=== PATIENT | male | born 1950 | race African-American/Black ===

== ENCOUNTER → 2016-11-04 | Outpatient (CLI) | payer OTHER ==
[2016-11-04 09:57] LABS: Basophils # (auto) 0 uL; Basophils % (auto) 0.5 % (0.0-2.0); Eosinophils # (auto) 0.3 uL; Hematocrit 45.7 % (41.0-53.0); Hemoglobin 15.6 g/dL (13.5-17.5); Lymphocytes # (auto) 2.7 uL; Lymphocytes % (auto) 49.5 % (10.0-50.0); Mean Corpuscular Hemoglobin 33.3 pg (28.0-32.0); Mean Corpuscular Volume 97.9 fL (80.0-100.0); Monocytes # (auto) 0.6 uL; Monocytes % (auto) 11.4 % (0.0-12.0); Neutrophils # (auto) 1.8 uL; Neutrophils % (auto) 32.6 % (37.0-80.0); Platelet Count (auto) 286 10^3/uL (140-450); Red Cell Distribution Width 12.9 % (11.6-16.0); White Blood Cell 5.5 10^3/uL (4.4-10.8)
[2016-11-04 10:24] LABS: Albumin 3.6 g/dL (3.4-5.0); BUN/Creatinine Ratio 11.3; Bilirubin, Total 0.8 mg/dL (0.2-1.0); Calcium 8.5 mg/dL (8.5-10.1); Potassium 3.9 mmol/L (3.5-5.1); Total Protein 7.8 g/dL (6.4-8.2)
== END | disposition home or self-care (01) ==
LOC: LAB 09:26
PROVIDERS: ATTEND Internal Medicine
DX: J30.2 Other seasonal allergic rhinitis (principal)
CPT/HCPCS: 36415; 80053; 80061; 83036; 84153; 84439; 84443; 85025; 85652; 86704; 86705; 86706; 86803; 87340

== ENCOUNTER → 2017-07-28 | Outpatient (CLI) | payer OTHER ==
[2017-07-28 16:29] LABS: Basophils # (auto) 0.1 uL; Basophils % (auto) 1.1 % (0.0-2.0); Eosinophils # (auto) 0.3 uL; Eosinophils % (auto) 4.9 % (0.0-7.0); Hematocrit 43.3 % (41.0-53.0); Hemoglobin 14.6 g/dL (13.5-17.5); Lymphocytes # (auto) 2.2 uL; Lymphocytes % (auto) 42.1 % (10.0-50.0); Mean Corpuscular Hemoglobin 33.5 pg (28.0-32.0); Mean Corpuscular Hgb Conc. 33.8 g/dL (32.0-36.0); Mean Corpuscular Volume 99.2 fL (80.0-100.0); Mean Platelet Volume 8.4 fL (6.9-10.8); Monocytes # (auto) 0.6 uL; Monocytes % (auto) 12.1 % (0.0-12.0); Neutrophils # (auto) 2.1 uL; Neutrophils % (auto) 39.8 % (37.0-80.0); Nucleated Red Blood Cells % 0.1 %; Platelet Count (auto) 195 10^3/uL (140-450); White Blood Cell 5.3 10^3/uL (4.4-10.8)
[2017-07-28 16:53] LABS: Albumin 3.7 g/dL (3.4-5.0); BUN/Creatinine Ratio 12.1; Calcium 8.7 mg/dL (8.5-10.1); Magnesium 2.6 mg/dL (1.6-2.6); Potassium 4.2 mmol/L (3.5-5.1)
[2017-07-28 17:01] LABS: Bilirubin, Total 0.4 mg/dL (0.2-1.0); Total Protein 7.7 g/dL (6.4-8.2)
== END | disposition home or self-care (01) ==
LOC: LAB 15:58
PROVIDERS: ATTEND Internal Medicine
DX: R25.2 Cramp and spasm (principal)
CPT/HCPCS: 36415; 80053; 83735; 84439; 84443; 85025

== ENCOUNTER → 2017-08-01 | Outpatient (CLI) | payer OTHER | END | disposition home or self-care (01) | LOC: XY 08:25 | PROVIDERS: ATTEND Internal Medicine | DX: I73.9 Peripheral vascular disease, unspecified (principal); M79.605 Pain in left leg; M79.604 Pain in right leg; R20.0 Anesthesia of skin | CPT/HCPCS: 93923; 93926 ==

== ENCOUNTER 2017-08-07 18:45 | Emergency (ER) | payer OTHER ==
[~2017-08-07] VITALS: Ht 172.7 cm; Wt 88.9 kg
[2017-08-07 19:41] VITALS: BP 137/76
[2017-08-07] MEDS ORDERED: IBUPROFEN 600 MG TAB PO ONE (23:30)
[2017-08-07] MEDS ORDERED: cefTRIAXone SOD 1,000 MG VL IM ONE ×2 (23:30→23:45)
== END 2017-08-08 00:15 | disposition home or self-care (01) ==
LOC: ER 18:45
DX: J40 Bronchitis, not specified as acute or chronic (principal)
CPT/HCPCS: 71020; 96372; 99284; J0696

== ENCOUNTER → 2017-11-03 | Outpatient (CLI) | payer OTHER ==
[2017-11-03 10:46] LABS: Basophils # (auto) 0 uL; Basophils % (auto) 0.9 % (0.0-2.0); Eosinophils # (auto) 0.2 uL; Eosinophils % (auto) 3.6 % (0.0-7.0); Hematocrit 45.1 % (41.0-53.0); Hemoglobin 15.1 g/dL (13.5-17.5); Lymphocytes # (auto) 2.6 uL; Lymphocytes % (auto) 49.9 % (10.0-50.0); Mean Corpuscular Hemoglobin 32.9 pg (28.0-32.0); Mean Corpuscular Hgb Conc. 33.5 g/dL (32.0-36.0); Mean Corpuscular Volume 98.2 fL (80.0-100.0); Monocytes # (auto) 0.8 uL; Monocytes % (auto) 14.4 % (0.0-12.0); Neutrophils # (auto) 1.6 uL; Neutrophils % (auto) 31.2 % (37.0-80.0); Nucleated Red Blood Cells % 0.1 %; Platelet Count (auto) 207 10^3/uL (140-450); Red Blood Cells 4.59 10^6/uL (4.5-5.90); Red Cell Distribution Width 13.1 % (11.8-14.3); White Blood Cell 5.3 10^3/uL (4.4-10.8)
[2017-11-03 10:49] LABS: Urine Bacteria NONE SEEN /hpf (None Seen); Urine Blood Negative /uL (Negative); Urine Specific Gravity 1.016 (1.001-1.035); Urine WBC 1 /hpf (0 - 3)
[2017-11-03 11:43] LABS: Albumin 3.4 g/dL (3.4-5.0); BUN/Creatinine Ratio 12.3; Calcium 8.5 mg/dL (8.5-10.1); Potassium 4.9 mmol/L (3.5-5.1); Total Protein 7.4 g/dL (6.4-8.2)
== END | disposition home or self-care (01) ==
LOC: LAB 10:32
PROVIDERS: ATTEND Internal Medicine
DX: N40.0 Benign prostatic hyperplasia without lower urinary tract symptoms (principal); E78.00 Pure hypercholesterolemia, unspecified
CPT/HCPCS: 36415; 80053; 80061; 81001; 84153; 85025

== ENCOUNTER → 2018-04-13 | Outpatient (CLI) | payer OTHER ==
[2018-04-13 10:26] LABS: Cholesterol 214 mg/dL (< 200); HDL Cholesterol 49 mg/dL (40-59); LDL Cholesterol 160 mg/dL (< 100); Triglycerides 68 mg/dL (< 150)
== END | disposition home or self-care (01) ==
LOC: LAB 09:40
PROVIDERS: ATTEND Internal Medicine
DX: E78.00 Pure hypercholesterolemia, unspecified (principal)
CPT/HCPCS: 36415; 80061; 84439; 84443; 86038; 86200; 86431

== ENCOUNTER → 2018-11-29 | Outpatient (CLI) | payer OTHER ==
[2018-11-29 15:31] LABS: Urine Bacteria NONE SEEN /hpf (None Seen); Urine Blood Negative /uL (Negative); Urine Specific Gravity 1.025 (1.001-1.035); Urine WBC 1 /hpf (0 - 3)
[2018-11-29 15:49] LABS: Basophils # (auto) 0 uL; Basophils % (auto) 0.2 % (0.0-2.0); Eosinophils # (auto) 0.2 uL; Eosinophils % (auto) 3.9 % (0.0-7.0); Hemoglobin 15.9 g/dL (13.5-17.5); Lymphocytes # (auto) 2.3 uL; Lymphocytes % (auto) 39.7 % (10.0-50.0); Mean Corpuscular Hemoglobin 32.8 pg (28.0-32.0); Mean Corpuscular Hgb Conc. 33.1 g/dL (32.0-36.0); Mean Corpuscular Volume 99.1 fL (80.0-100.0); Monocytes # (auto) 0.7 uL; Monocytes % (auto) 11.4 % (0.0-12.0); Neutrophils # (auto) 2.6 uL; Neutrophils % (auto) 44.8 % (37.0-80.0); Nucleated Red Blood Cells % 0.1 %; Platelet Count (auto) 203 10^3/uL (140-450); Red Blood Cells 4.84 10^6/uL (4.5-5.90); Red Cell Distribution Width 13.3 % (11.8-14.3); White Blood Cell 5.8 10^3/uL (4.4-10.8)
[2018-11-29 16:09] LABS: Albumin 3.6 g/dL (3.4-5.0); BUN/Creatinine Ratio 12.8; Bilirubin, Total 0.6 mg/dL (0.2-1.0); Calcium 8.6 mg/dL (8.5-10.1); Total Protein 7.4 g/dL (6.4-8.2)
[2018-11-29 16:14] LABS: Potassium 4.2 mmol/L (3.5-5.1)
== END | disposition home or self-care (01) ==
LOC: LAB 14:58
PROVIDERS: ATTEND Internal Medicine
DX: J30.9 Allergic rhinitis, unspecified (principal); E78.5 Hyperlipidemia, unspecified
CPT/HCPCS: 36415; 80053; 80061; 81001; 84439; 84443; 85025; 85652

== ENCOUNTER → 2019-04-08 | Outpatient (CLI) | payer OTHER ==
[2019-04-08 09:39] LABS: Basophils # (auto) 0 uL; Basophils % (auto) 0.6 % (0.0-2.0); Lymphocytes # (auto) 2.6 uL; Monocytes # (auto) 0.7 uL; Nucleated Red Blood Cells % 0.1 %
[2019-04-08 09:42] LABS: Eosinophils # (auto) 0.4 uL; Eosinophils % (auto) 6.4 % (0.0-7.0); Hematocrit 46.1 % (41.0-53.0); Hemoglobin 15.5 g/dL (13.5-17.5); Lymphocytes % (auto) 45.4 % (10.0-50.0); Mean Corpuscular Hemoglobin 33.4 pg (28.0-32.0); Mean Corpuscular Hgb Conc. 33.6 g/dL (32.0-36.0); Mean Corpuscular Volume 99.4 fL (80.0-100.0); Monocytes % (auto) 12.3 % (0.0-12.0); Neutrophils % (auto) 35.3 % (37.0-80.0); Platelet Count (auto) 214 10^3/uL (140-450); Red Blood Cells 4.64 10^6/uL (4.5-5.90); Red Cell Distribution Width 13.3 % (11.8-14.3); White Blood Cell 5.6 10^3/uL (4.4-10.8)
[2019-04-08 10:16] LABS: Albumin 3.2 g/dL (3.4-5.0); Calcium 8.2 mg/dL (8.5-10.1)
[2019-04-08 10:19] LABS: BUN/Creatinine Ratio 10.3; Bilirubin, Total 0.6 mg/dL (0.2-1.0); Total Protein 7.3 g/dL (6.4-8.2)
[2019-04-08 10:24] LABS: Free T4 (Free Thyroxine) 0.86 ng/dL (0.89-1.76); Prostate Specific Antigen 1.84 ng/mL (0.0-4.0)
== END | disposition home or self-care (01) ==
LOC: LAB 09:14
PROVIDERS: ATTEND Internal Medicine
DX: N40.0 Benign prostatic hyperplasia without lower urinary tract symptoms (principal); N52.9 Male erectile dysfunction, unspecified; R53.83 Other fatigue
CPT/HCPCS: 36415; 80053; 84153; 84403; 84439; 84443; 85025; 85379; 85652

== ENCOUNTER → 2020-01-20 | Outpatient (CLI) | payer OTHER ==
[2020-01-20 10:03] LABS: Basophils # (auto) 0.1 10 ^3/uL (0-0.2); Basophils % (auto) 0.8 % (0.0-2.0); Eosinophils # (auto) 0.4 10 ^3/uL (0-0.8); Eosinophils % (auto) 6.2 % (0.0-7.0); Hematocrit 45.4 % (41.0-53.0); Hemoglobin 15.2 g/dL (13.5-17.5); Lymphocytes # (auto) 2.6 10 ^3/uL (0.4-5.4); Lymphocytes % (auto) 38.2 % (10.0-50.0); Mean Corpuscular Hemoglobin 33.8 pg (28.0-32.0); Mean Corpuscular Hgb Conc. 33.6 g/dL (32.0-36.0); Mean Corpuscular Volume 100.7 fL (80.0-100.0); Monocytes # (auto) 0.7 10 ^3/uL (0-1.3); Monocytes % (auto) 10.8 % (0.0-12.0); Nucleated Red Blood Cells % 0.1 %; Platelet Count (auto) 201 10^3/uL (140-450); Red Cell Distribution Width 13.6 % (11.8-14.3); White Blood Cell 6.9 10^3/uL (4.4-10.8)
[2020-01-20 10:35] LABS: Albumin 3.3 g/dL (3.4-5.0); Calcium 8.3 mg/dL (8.5-10.1); Potassium 4.6 mmol/L (3.5-5.1)
[2020-01-20 10:39] LABS: Bilirubin, Total 0.8 mg/dL (0.2-1.0)
== END | disposition home or self-care (01) ==
LOC: LAB 09:41
PROVIDERS: ATTEND Internal Medicine
DX: I10 Essential (primary) hypertension (principal); E78.5 Hyperlipidemia, unspecified
CPT/HCPCS: 36415; 80053; 80061; 84443; 85025; 85652

== ENCOUNTER → 2020-05-18 | Outpatient (CLI) | payer OTHER ==
[2020-05-18 08:42] LABS: Basophils # (auto) 0 10 ^3/uL (0-0.2); Basophils % (auto) 0.5 % (0.0-2.0); Eosinophils # (auto) 0.2 10 ^3/uL (0-0.8); Eosinophils % (auto) 3.8 % (0.0-7.0); Hematocrit 45.5 % (41.0-53.0); Hemoglobin 15.5 g/dL (13.5-17.5); Lymphocytes # (auto) 2.5 10 ^3/uL (0.4-5.4); Lymphocytes % (auto) 44.1 % (10.0-50.0); Mean Corpuscular Hemoglobin 33.8 pg (28.0-32.0); Mean Corpuscular Hgb Conc. 34.1 g/dL (32.0-36.0); Monocytes # (auto) 0.7 10 ^3/uL (0-1.3); Monocytes % (auto) 12.1 % (0.0-12.0); Neutrophils # (auto) 2.2 10 ^3/uL (1.6-8.6); Neutrophils % (auto) 39.5 % (37.0-80.0); Nucleated Red Blood Cells % 0.1 %; Platelet Count (auto) 221 10^3/uL (140-450); Red Blood Cells 4.59 10^6/uL (4.5-5.90); Red Cell Distribution Width 12.8 % (11.8-14.3); White Blood Cell 5.6 10^3/uL (4.4-10.8)
[2020-05-18 09:14] LABS: Potassium 4.3 mmol/L (3.5-5.1)
[2020-05-18 09:24] LABS: Albumin 3.9 g/dL (3.4-5.0); BUN/Creatinine Ratio 11.8; Bilirubin, Total 1.2 mg/dL (0.2-1.0); Calcium 9.1 mg/dL (8.5-10.1); Total Protein 7.8 g/dL (6.4-8.2)
== END | disposition home or self-care (01) ==
LOC: LAB 07:08
PROVIDERS: ATTEND Internal Medicine
DX: I10 Essential (primary) hypertension (principal); E78.5 Hyperlipidemia, unspecified
CPT/HCPCS: 36415; 80053; 80061; 82607; 85025